=== PATIENT | female | born 1930 | race Caucasian/White ===

== ENCOUNTER 2018-02-23 09:13 | Inpatient (IN) ==
[2018-02-23] MEDS ORDERED: ONDANSETRON 4 MG/2 ML VIAL IV PRN (09:17)
[2018-02-23] MEDS ORDERED: GLUCAGON 1 MG VIAL IM PRN (09:17)
[2018-02-23] MEDS ORDERED: DEXTROSE 50% 25 GM/50 ML SYRINGE IV PRN (09:17)
[2018-02-23] MEDS ORDERED: ACETAMINOPHEN 325 MG TABLET PO PRN (09:17)
[2018-02-23] MEDS ORDERED: ENOXAPARIN 40 MG/0.4 ML SYRINGE SUBCUT SCH (09:30)
[2018-02-23 11:20] LABS: Basophils % 0.3 % (0.0-0.8); Eosinophils # 0.2 10*3/uL (0.0-0.87); Eosinophils % 2.6 % (0.00-10.9); Hematocrit 41.4 VOL% (35.7-47.0); Hemoglobin 13.1 GM/DL (12.0-16.0); Immature Granulocytes % 0.7 %; Immature Granulocytes Absolute 0.05 #; Lymphocytes # 1.6 10*3/uL (1.4-4.0); Lymphocytes % 20.6 % (21.3-54.2); Mean Corpuscular HGB Conc 31.6 GM/DL (32-36); Mean Corpuscular Hemoglobin 31 PG (27-34); Mean Platelet Volume 10.6 FL (9.6-12.0); Monocytes # 0.8 10*3/uL (0.11-0.8); Monocytes % 9.8 % (1.7-12.7); Platelet Count 176 T/CUMM (130-400); Red Blood Count 4.18 MC/CUMM (3.8-5.5); Red Cell Distribution Width 13.3 % (9.3-17.3); White Blood Count 7.6 T/CUMM (4-12)
[2018-02-23 11:47] LABS: Folate 19.2 NG/ML (5.4-24.0)
[2018-02-23 11:55] LABS: Albumin 3.5 G/DL (3.4-5.0); Bilirubin,Total 0.6 MG/DL (0.2-1.0); Potassium 3.4 MMOL/L (3.5-5.1); Total Protein 7.3 G/DL (6.4-8.3)
[2018-02-23] MEDS: INSULIN LISPRO 100 UNIT/ML SUBCUT SCH ×2 (12:29→18:11)
[2018-02-23] MEDS ORDERED: SODIUM CHLORIDE 0.9% 1,000 ML IV SCH (12:30)
[2018-02-23 14:58] LABS: Apearance,Urine Slightly Hazy (Clear); Bacteria,Urine Occasional /HPF (Few); Bilirubin,Urine Negative (Negative); Blood, Urine Negative (Negative); Glucose,Urine (UA) Negative (Negative); Ketones,Urine 5 mg/dL (Negative); Mucus,Urine Occasional /LPF (Occasional); Nitrite,Urine Negative (Negative); Protein,Urine Negative; RBC,Urine 1 /HPF (0-4); Squamous Epithelial Cell,Urine Occasional /HPF (0-10); Urine Color Yellow (Yellow); Urine Specific Gravity 1.018 (1.001-1.035); WBC,Urine 1 /HPF (0-6)
[2018-02-23] MEDS: LOSARTAN 50 MG TABLET PO SCH (18:10)
[2018-02-23] MEDS: metFORMIN 500 MG TABLET PO SCH (18:11)
[2018-02-23] MEDS: METOPROLOL TARTRATE 25 MG TABLET PO SCH (20:23)
[2018-02-23] MEDS: APIXABAN 2.5 MG TABLET PO SCH (20:23)
[2018-02-23] MEDS: DOCUSATE SODIUM 100 MG CAPSULE PO SCH (20:24)
[2018-02-24] MEDS: INSULIN LISPRO 100 UNIT/ML SUBCUT SCH ×4 (03:30→18:38)
[2018-02-24 05:40] LABS: Risk Ratio 4.48; VLDL CHOLESTEROL 32.6 MG/DL
[2018-02-24] MEDS ORDERED: metFORMIN 500 MG TABLET PO SCH (08:00)
[2018-02-24] MEDS: DOCUSATE SODIUM 100 MG CAPSULE PO SCH (08:13)
[2018-02-24] MEDS: METOPROLOL TARTRATE 25 MG TABLET PO SCH (08:14)
[2018-02-24] MEDS: LOSARTAN 50 MG TABLET PO SCH (08:15)
[2018-02-24] MEDS: APIXABAN 2.5 MG TABLET PO SCH (08:15)
[2018-02-24] MEDS ORDERED: ATORVASTATIN 10 MG TABLET PO SCH (09:00)
[2018-02-24] MEDS ORDERED: FUROSEMIDE 20 MG TABLET PO SCH (09:00)
[2018-02-24] MEDS ORDERED: CELECOXIB 200 MG CAPSULE PO SCH (09:00)
[2018-02-24] MEDS ORDERED: ASPIRIN EC 81 MG TABLET PO SCH (09:00)
[2018-02-24] MEDS ORDERED: hydroCHLOROthiazide 12.5 MG CAPSULE PO SCH (09:00)
[2018-02-24] MEDS ORDERED: sitaGLIPtin 25 MG TABLET PO SCH (09:00)
[2018-02-24] MEDS ORDERED: PANTOPRAZOLE 40 MG TABLET PO SCH (09:00)
[2018-02-24] MEDS ORDERED: GABAPENTIN 300 MG CAPSULE PO SCH (09:00)
[2018-02-24 12:13] VITALS: BP 179/81
[2018-02-24] MEDS: metFORMIN 500 MG TABLET PO SCH (18:38)
== END 2018-02-24 17:26 | DRG 65 ==
LOC: N.4E 09:41
PROVIDERS: ADMIT Family Medicine; ATTEND Family Medicine

== ENCOUNTER 2018-11-30 14:09 | Inpatient (IN) ==
[2018-11-30] MEDS ORDERED: DEXTROSE 50% 25 GM/50 ML VIAL IV PRN (14:14)
[2018-11-30] MEDS ORDERED: GLUCAGON 1 MG VIAL IM PRN (14:14)
[2018-11-30] MEDS ORDERED: ACETAMINOPHEN 325 MG TABLET PO PRN (14:14)
[2018-11-30] MEDS ORDERED: ONDANSETRON 4 MG/2 ML VIAL IV PRN (14:14)
[2018-11-30] MEDS ORDERED: DOCUSATE SODIUM 100 MG CAPSULE PO PRN (14:14)
[2018-11-30] MEDS ORDERED: INFLUENZA VIRUS VACCINE 0.5 ML SYRINGE IM ONE (17:01)
[2018-11-30 17:25] LABS: Basophils % 0.5 % (0.0-0.8); Eosinophils # 0.2 10*3/uL (0.0-0.87); Eosinophils % 2.1 % (0.00-10.9); Hematocrit 41.5 VOL% (35.7-47.0); Hemoglobin 13.6 GM/DL (12.0-16.0); Immature Granulocytes % 0.4 %; Immature Granulocytes Absolute 0.03 #; Lymphocytes # 2.1 10*3/uL (1.4-4.0); Lymphocytes % 24.8 % (21.3-54.2); Mean Corpuscular HGB Conc 32.8 GM/DL (32-36); Mean Platelet Volume 10.8 FL (9.6-12.0); Monocytes % 8.1 % (1.7-12.7); Neutrophils % 64.1 % (38.7-73.9); Platelet Count 169 T/CUMM (130-400); Red Blood Count 4.19 MC/CUMM (3.8-5.5); Red Cell Distribution Width 13.2 % (9.3-17.3); White Blood Count 8.4 T/CUMM (4-12)
[2018-11-30 17:41] LABS: INR 0.9; PT Patient Result 10.2 SECS (9.6-12.2)
[2018-11-30 17:47] LABS: Albumin 3.7 G/DL (3.4-5.0); Bilirubin,Total 0.6 MG/DL (0.2-1.0); Osmolality,Calculated 286.1 MOS/KG (273-304); Total Protein 7.6 G/DL (6.4-8.3)
[2018-11-30 17:57] LABS: Folate 17.7 NG/ML (5.4-24.0)
[2018-11-30] MEDS: SODIUM CHLORIDE 0.9% 1,000 ML IV SCH (18:14)
[2018-11-30 18:16] LABS: Apearance,Urine CLEAR (Clear); Bacteria,Urine Occasional /HPF (Few); Bilirubin,Urine Negative (Negative); Blood, Urine Negative (Negative); Glucose,Urine (UA) Negative (Negative); Ketones,Urine Negative (Negative); Nitrite,Urine Negative (Negative); Protein,Urine Negative; RBC,Urine <1 /HPF (0-4); Squamous Epithelial Cell,Urine Occasional /HPF (0-10); Urine Color Yellow (Yellow); Urine Specific Gravity 1.015 (1.001-1.035); Urine Urobilinogen < 2.0 EU/DL (0.2-1.0); WBC,Urine 1 /HPF (0-6)
[2018-11-30] MEDS: INSULIN LISPRO 100 UNIT/ML SUBCUT SCH ×2 (18:16→21:41)
[2018-11-30] MEDS ORDERED: GABAPENTIN 300 MG CAPSULE PO SCH (21:00)
[2018-11-30] MEDS: APIXABAN 2.5 MG TABLET PO SCH (21:41)
[2018-12-01] MEDS: SODIUM CHLORIDE 0.9% 1,000 ML IV SCH ×3 (06:03→20:54)
[2018-12-01] MEDS ORDERED: ENOXAPARIN 30 MG/0.3 ML SYRINGE SUBCUT ONE (06:18)
[2018-12-01 06:32] LABS: Risk Ratio 2.43; VLDL CHOLESTEROL 25.2 MG/DL
[2018-12-01] MEDS ORDERED: LOSARTAN PO SCH (09:00)
[2018-12-01] MEDS: INSULIN LISPRO 100 UNIT/ML SUBCUT SCH ×4 (09:26→21:18)
[2018-12-01] MEDS: hydroCHLOROthiazide 12.5 MG CAPSULE PO SCH (09:28)
[2018-12-01] MEDS: SIMVASTATIN 10 MG TABLET PO SCH (09:28)
[2018-12-01] MEDS: metFORMIN 500 MG TABLET PO SCH (09:28)
[2018-12-01] MEDS: APIXABAN 2.5 MG TABLET PO SCH (09:28)
[2018-12-01] MEDS: METOPROLOL TARTRATE 25 MG TABLET PO SCH ×2 (09:29→20:52)
[2018-12-01] MEDS: PANTOPRAZOLE 40 MG TABLET PO SCH (09:29)
[2018-12-01] MEDS: sitaGLIPtin 25 MG TABLET PO SCH (09:29)
[2018-12-01] MEDS ORDERED: metFORMIN 500 MG TABLET PO SCH (17:00)
[2018-12-01] MEDS: APIXABAN 5 MG TABLET PO SCH (20:51)
[2018-12-01] MEDS ORDERED: GABAPENTIN 300 MG CAPSULE PO SCH (21:00)
[2018-12-02] MEDS: INSULIN LISPRO 100 UNIT/ML SUBCUT SCH ×2 (08:34→08:46)
[2018-12-02] MEDS: hydroCHLOROthiazide 12.5 MG CAPSULE PO SCH (08:35)
[2018-12-02] MEDS: METOPROLOL TARTRATE 25 MG TABLET PO SCH (08:35)
[2018-12-02] MEDS: metFORMIN 500 MG TABLET PO SCH (08:35)
[2018-12-02] MEDS: APIXABAN 5 MG TABLET PO SCH (08:35)
[2018-12-02] MEDS: sitaGLIPtin 25 MG TABLET PO SCH (08:35)
[2018-12-02] MEDS: PANTOPRAZOLE 40 MG TABLET PO SCH (08:36)
[2018-12-02] MEDS: SIMVASTATIN 10 MG TABLET PO SCH (08:36)
[2018-12-02 08:39] VITALS: BP 136/80
[2018-12-02] MEDS: SODIUM CHLORIDE 0.9% 1,000 ML IV SCH (08:46)
== END 2018-12-02 10:59 | DRG 66 ==
LOC: N.4E
PROVIDERS: ADMIT Family Medicine; ATTEND Family Medicine